=== PATIENT | male | born 1950 | race Caucasian/White ===

== ENCOUNTER 2017-09-17 14:18 | Emergency (ER) | payer MEDICARE, OTHER ==
--- NOTE | 2017-09-17 15:04 | ED Physician Documentation ---
History of Present Illness - Stated complaint Stated Complaint: FELL HIT FACE LAC/RT ELBOW PX - Chief complaint Chief Complaint: Ext Problem - History obtained from History obtained from: Patient - History of Present Illness Timing: Today Pain level max: 6 Pain level now: 5 Improved by: rest Worsened by: movement - Additonal information Additional information: Patient slipped and fell today on the vinyl floor when walking in his socks. Landed on R elbow and face. Now complains of facial pain, laceration and R elbow pain. No neck or back pain. No numbness or tingling. No loss of consciousness. No vomiting. Review of Systems Ten Systems: 10 systems reviewed and negative Constitutional: denies: Fever, Chills Throat: denies: Sore throat Cardiac: denies: Chest pain / pressure Respiratory: denies: Cough GI: denies: Nausea, Vomiting, Constipation Skin: denies: Rash Musculoskeletal: denies: Neck pain, Back pain Neurologic: denies: Generalized weakness, Focal weakness PD PAST MEDICAL HISTORY - Past Medical History Past Medical History: No - Past Surgical History Past Surgical History: Yes Ortho: Hip replacement, Knee replacement - Present Medications Home Medications: Ambulatory Orders Medication Instructions Recorded Confirmed Simvastatin 09/17/17 - Allergies Allergies/Adverse Reactions: Allergies Allergy/AdvReac Type Severity Reaction Status Date / Time No Known Drug Allergies Allergy Verified 09/17/17 14:27 - Social History Does the pt smoke?: No Smoking Status: Never smoker Does the pt drink ETOH?: Yes Does the pt have substance abuse?: No - Immunizations Immunizations are current?: Yes - POLST Patient has POLST: No PD ED PE NORMAL - Vitals Vital signs reviewed: Yes - General General: Alert and oriented X 3, No acute distress, Well developed/nourished - HEENT HEENT: PERRL, EOMI, Ears normal, Moist mucous membranes, Pharynx benign, Dentition benign, Other (TTP over rthe bridge of the nose, small lac present. Also lac to the R supraorbital ridge with tenderness over the same area. ) - Neck Neck: Supple, no meningeal sign, No bony TTP (FROM without pain.) - Cardiac Cardiac: RRR - Respiratory Respiratory: No respiratory distress, Clear bilaterally - Abdomen Abdomen: Soft, Non tender, Non distended - Back Back: No spinal TTP - Derm Derm: Warm and dry - Extremities Extremities: No tenderness to palpate, Normal ROM s pain, Other (TTP R elbow, diffusely. has approx 80% ROM. NVI. TTP over the radial head. ) - Neuro Neuro: Alert and oriented X 3, quality assurance intern 2-12 intact, No motor deficit, No sensory deficit Eye Opening: Spontaneous Motor: Obeys Commands Verbal: Oriented GCS Score: 15 - Psych Psych: Normal mood, Normal affect Results - Vitals Vitals: Vital Signs - 24 hr 18 14:23 Temperature 36.6 C Heart Rate 65 Respiratory 16 Rate Blood Pressure 136/93 H O2 Saturation 99 Oxygen O2 Source Room air - Rads (name of study) head CT Radiology: Prelim report reviewed, EMP read contemporaneously, See rad report ( Thin subdural hematoma along the falx and left tentorium cerebelli. ) facial bones CT Radiology: Prelim report reviewed, EMP read contemporaneously, See rad report ( Acute comminuted mildly displaced bilateral nasal bone fractures. ) R elbow xray Radiology: Prelim report reviewed, EMP read contemporaneously, See rad report ( Minimally impacted intra-articular radial head fracture with associated elbow effusion) PD MEDICAL DECISION MAKING - ED course Complexity details: reviewed results, re-evaluated patient, considered differential, d/w patient, d/w family, d/w health management consultant ED course: Patient is a 66-year-old male who presents to the emergency department after a ground level fall. Found to have a small subdural hematoma along the falx. Also found to have acute comminuted displaced bilateral nasal bone fractures and a right radial head fracture. Placed in a sling. Discussed the case with [facility], 1600 - Dr. Velez ED graciously accepts in transfer to [facility]. GCS 15. Neurologically intact. We will transfer via airlift. This document was made in part using voice recognition software. While efforts are made to proofread this document, sound alike and grammatical errors may occur. . Departure - Departure Disposition: 02 Transfer Acute Care Hosp Clinical Impression: Subdural hemorrhage Radial head fracture, closed Qualifiers: Encounter type: initial encounter Fracture alignment: displaced Laterality: right Qualified Code(s): S52.121A - Displaced fracture of head of right radius, initial encounter for closed fracture Nasal fracture Qualifiers: Encounter type: initial encounter Fracture type: closed Qualified Code(s): S02.2XXA - Fracture of nasal bones, initial encounter for closed fracture Condition: Stable
[2017-09-17] MEDS ORDERED: HYDROmorphone 1 MG/ML CARPUJECT IM STA (15:15)
--- NOTE | 2017-09-17 15:38 | XRAY Preliminary Report ---
Exam: XR ELBOW 3 VIEW RT IMPRESSION: Minimally impacted intra-articular radial head fracture with associated elbow effusion. [facility] SITE ID: [id number]
--- NOTE | 2017-09-17 15:38 | XRAY Report ---
EXAM: RIGHT ELBOW RADIOGRAPHY EXAM DATE: 09/17/2017 03:28 PM. CLINICAL HISTORY: Right elbow pain post fall. COMPARISON: None. TECHNIQUE: 3 views. FINDINGS: Bones: Minimally impacted intra-articular anterolateral radial head fracture. Joints: Normal alignment. An elbow effusion is present. Soft Tissues: No evident focal soft tissue swelling. IMPRESSION: Minimally impacted intra-articular radial head fracture with associated elbow effusion. [facility] Referring Provider Line: [phone] SITE ID: [id number]
--- NOTE | 2017-09-17 15:50 | CT Report ---
EXAM: CT HEAD EXAM DATE: 09/17/2017 03:38 PM. CLINICAL HISTORY: Fall. Hit head and face. Nasal deformity. Tenderness to palpation at right orbit. COMPARISON: None. TECHNIQUE: Multiaxial CT images were obtained from the foramen magnum to the vertex. Reformats: Coron al. IV contrast: None. In accordance with CT protocol optimization, one or more of the following dose reduction techniques w ere utilized for this exam: automated exposure control, adjustment of mA and/or KV based on patient s ize, or use of iterative reconstructive technique. FINDINGS: Parenchyma: Mild patchy white matter hypoattenuation, compatible with chronic small vessel ischemic c hange. No intraparenchymal hemorrhage, mass effect, or CT findings of evolving acute/subacute infarct . Patel-white differentiation is distinct. Extraaxial Spaces: Thin subdural hematoma along the falx and left tentorium cerebelli, maximum thickn ess 3 mm. Ventricles: The ventricles and basal cisterns are patent. No hydrocephalus or midline shift. Sinuses and Orbits: Minimal mucosal thickening in the anterior ethmoid air cells. The visualized para nasal sinuses and the mastoid air cells are otherwise clear. Bones: No evidence of calvarial fracture or defect. Other: Right lens replacement. IMPRESSION: Thin subdural hematoma along the falx and left tentorium cerebelli. [facility] The above findings were discussed with Dr. Gillis by Dr. Josiane Berumen at 15:48 hrs on 09/17/17. Referring Provider Line: [phone] SITE ID: [id number]
--- NOTE | 2017-09-17 15:50 | CT Preliminary Report ---
Exam: CT HEAD W/O IMPRESSION: Thin subdural hematoma along the falx and left tentorium cerebelli. [facility] The above findings were discussed with Dr. Gillis by Dr. Josiane Berumen at 15:48 hrs on 09/17/17. SITE ID: [id number]
--- NOTE | 2017-09-17 15:53 | CT Report ---
EXAM: CT MAXILLOFACIAL WITHOUT CONTRAST EXAM DATE: 09/17/2017 03:38 PM. CLINICAL HISTORY: Fall. Hit head and face. Nasal deformity. Tenderness to palpation at right orbit. COMPARISONS: None. TECHNIQUE: Thin-section axial images were acquired of the face without contrast. Post-processing: Cor onal and sagittal reformats. Other: None. In accordance with CT protocol optimization, one or more of the following dose reduction techniques w ere utilized for this exam: automated exposure control, adjustment of mA and/or KV based on patient s ize, or use of iterative reconstructive technique. FINDINGS: Soft Tissue: Multiple calcific densities in the superficial soft tissues of the forehead, could repre sent radiopaque debris or skin calcifications. Mild paranasal swelling. Orbits: Right lens replacement. The globes are intact. No evidence for retrobulbar hematoma. Bones: Comminuted mildly displaced bilateral nasal bone fractures. Rightwards deviation of the bony n magda septum, a normal variant. Temporomandibular Joints: The temporomandibular joints are symmetric and normally located. Sinuses: Minimal mucosal thickening in the bilateral anterior ethmoid air cells and right maxillary s inus floor. Otherwise clear. Other: See CT head report for intracranial findings. IMPRESSION: Acute comminuted mildly displaced bilateral nasal bone fractures. [facility] Referring Provider Line: [phone] SITE ID: [id number]
--- NOTE | 2017-09-17 15:53 | CT Preliminary Report ---
Exam: CT FACIAL BONES W/O IMPRESSION: Acute comminuted mildly displaced bilateral nasal bone fractures. [facility] SITE ID: [id number]
[2017-09-17 16:28] LABS: BASOPHILS % (AUTO) 0.5 %; EOSINOPHILS # (AUTO) 0.2 10^3/uL (0.0-0.7); EOSINOPHILS % (AUTO) 1.9 %; LYMPHOCYTES # (AUTO) 1.5 10^3/uL (1.5-3.5); LYMPHOCYTES % (AUTO) 17.9 %; MEAN CORPUSCULAR HEMOGLOBIN 30.2 pg (27.0-31.0); MEAN CORPUSCULAR HGB CONC 34.2 g/dL (32.0-36.0); MEAN CORPUSCULAR VOLUME 88.4 fL (80.0-94.0); MEAN PLATELET VOLUME 6.6 fL (7.4-11.4); MONOCYTES # (AUTO) 0.6 10^3/uL (0.0-1.0); MONOCYTES % (AUTO) 6.9 %; NEUTROPHILS # (AUTO) 6.3 10^3/uL (1.5-6.6); NEUTROPHILS % (AUTO) 72.8 %; PLT - PLATELET COUNT 242 10^3/uL (130-450); RED BLOOD COUNT 4.98 10^6/uL (4.70-6.10); RED CELL DISTRIBUTION WIDTH 13.5 % (12.0-15.0); WHITE BLOOD COUNT 8.6 x10^3/uL (4.8-10.8)
[2017-09-17 16:37] LABS: PT - PROTHROMBIN TIME 11.3 secs (9.9-12.6)
[2017-09-17 16:40] LABS: ALBUMIN 4.1 g/dL (3.2-5.5); ALBUMIN/GLOBULIN RATIO 1.3 (1.0-2.2); BILIRUBIN,TOTAL 0.7 mg/dL (0.2-1.0); TOTAL PROTEIN 7.2 g/dL (6.7-8.2)
[2017-09-17 16:42] VITALS: BP 133/93
[2017-09-17] MEDS ORDERED: HYDROmorphone 1 MG/ML CARPUJECT IVP STA (16:42)
== END 2017-09-17 17:27 | disposition short-term general hospital (02) ==
LOC: ED 14:18
DX: S06.5X9A Traumatic subdural hemorrhage with loss of consciousness of unspecified duration, initial encounter (principal); S52.121A Displaced fracture of head of right radius, initial encounter for closed fracture; S02.2XXA Fracture of nasal bones, initial encounter for closed fracture; W01.0XXA Fall on same level from slipping, tripping and stumbling without subsequent striking against object, initial encounter; Y93.01 Activity, walking, marching and hiking
CPT/HCPCS: 36415; 70450; 70486; 73080; 80053; 83690; 85025; 85610; 96372; 96374; 99284; 99285; J1170

== ENCOUNTER 2023-01-15 16:09 | Outpatient (CLI) | payer MEDICARE, OTHER | END 2023-01-15 23:59 | disposition EMS.NT | LOC: EMS 16:09 | DX: Z03.89 Encounter for observation for other suspected diseases and conditions ruled out (principal) ==